=== PATIENT | female | born 1955 | race Caucasian/White ===

== ENCOUNTER → 2017-03-30 | Outpatient (REF) | payer MEDICARE, BC ==
[~2017-03-30] MED LIST: CALTCHW6 PO; CARB1TAB20 PO; CLAR10CA3 PO; EYE5SOL OU; FOLI1TAB4 PO; IBUP200C10 PO; LEVO150T7 PO; METH2.5TA PO; MULTCHW14 PO; NITRO10CA PO; TYLE325C PO; VITA500C24 PO; VITA600C4 PO
== END ==
LOC: M LAB REF 16:24
PROVIDERS: ATTEND Obstetrics & Gynecology
DX: N39.46 Mixed incontinence (principal); N32.81 Overactive bladder

== ENCOUNTER 2017-05-15 07:02 | Day surgery (SDC) | payer MEDICARE ==
[~2017-05-15] VITALS: Ht 160 cm; Wt 85.3 kg
[2017-05-15] MEDS ORDERED: LR 1,000 ML IV ONE (07:15)
[2017-05-15] MEDS ORDERED: LIDOCAINE 1% MDV 20ML VIAL SQ PRN (07:15)
[2017-05-15 07:36] LABS: MEAN CORPUSCULAR HEMOGLOBIN 30.1 pg (27.0-33.0); MEAN CORPUSCULAR HGB CONC 33.2 g/dl (32.0-36.5); MEAN CORPUSCULAR VOLUME 90.8 fl (80.0-96.0); PLATELET COUNT, AUTOMATED 261 10^3/uL (150-450); RED CELL DISTRIBUTION WIDTH 14.2 % (11.5-14.5); WHITE BLOOD COUNT 5.4 10^3/uL (4.0-10.0)
[2017-05-15] MEDS ORDERED: MIDAZOLAM INJ 2 MG/2 ML VIAL (J2250) As Ordered ONE (08:18)
[2017-05-15] MEDS ORDERED: fentaNYL 100 MCG/2 ML INJECTION (J3010) As Ordered ONE (08:18)
[2017-05-15] MEDS ORDERED: PROPOFOL 200 MG/20 ML VIAL As Ordered ONE (08:18)
[2017-05-15] MEDS ORDERED: LIDOCAINE 2% INJ 100 MG/5 ML SDV (FOR ANES.) As Ordered ONE (08:18)
--- NOTE | 2017-05-15 08:43 | ECGEPIP ---
Stationary ECG Study [facility] Test Date: 2017-05-15 Pat Name: ENEIDA MORRISON Department: Room: - Gender: F Mental Health Tech: [facility] : 1955 Requested By: Lucas Mello Order Number: [id number] Reading MD: Leandro Beltran Measurements Intervals [place] Rate: 92 P: 53 CT: 148 QRS: 32 QRSD: 97 T: 18 QT: 357 QTc: 443 Interpretive Statements Normal sinus rhythm Nonspecific diffuse ST scooping No prior tracing for comparison. Clinical correlation advised. Electronically Signed On 05-15-2017 8:43:12 EDT by Leandro Beltran
[2017-05-15] MEDS ORDERED: VASOPRESSIN INJ 20 UNITS/ML VIAL As Ordered ONE (09:51)
[2017-05-15] MEDS ORDERED: ONDANSETRON 4MG/2ML VIAL (J2405) As Ordered ONE (09:56)
[2017-05-15] MEDS ORDERED: dexameTHASONE 4 MG/ML 1ML VIAL (J1100) As Ordered ONE (09:56)
[2017-05-15] MEDS ORDERED: HYDROmorphone HCL 2 MG/ML 1ML VIAL (J1170) As Ordered ONE (10:27)
--- NOTE | 2017-05-15 12:14 | RO ---
DATE OF PROCEDURE: 05/15/2017 PREPROCEDURE DIAGNOSIS: Symptomatic pelvic relaxation. POSTPROCEDURE DIAGNOSIS: Symptomatic pelvic relaxation. PROCEDURE: Sacrospinous suspension with anterior and posterior colporrhaphy and perineorrhaphy. SURGEON: Dr. Katt Regalado. CLOCK REPAIRER: ANESTHESIA: Laryngeal mask airway. DESCRIPTION OF PROCEDURE: Lennie was brought to the operating room where sufficient anesthesia was induced and she was prepped, draped and positioned in the usual sterile fashion with the bladder emptied and the tissues visualized. Under anesthesia, again, she has a large cystocele, not as large rectocele. She has as posterior defect where the rectovaginal septum was not attached to the perineal body in the midline posteriorly but she did have some posterior support. So we went ahead and placed Allis clamps on the vaginal tissues and measured them to the sacrospinous ligament in preparation for the sacrospinous suspension. We then injected a little diluted vasopressin under the tissues. I went ahead and resected a triangle of tissue as already measured out and then dissected posteriorly. The patient also had an enterocele sac and so we entered this and closed this with a pursestring sutures of #2-0 Prolene. Then we continued the dissection towards the right sixth spinous ligament which was readily palpable in this patient and having dissected that adequately placed first a 0 PDS suture in one of the Anchorsure anchors and then we had two #2-0 PDS through the second one. We placed those as the 0 was a bit more medial and the two were a little bit lateral to that but of course, medial to the spine so as to avoid the vascular supply and such. We had good placement to test the suture and see that it was in good position and we had good anchoring into the ligament and there was no evidence of undue bleeding or other difficulty. We went ahead with Gamestaq needles and brought those sutures out through the edges of the vaginal wound working well away from the edge of the wound so as to be sure to not tear through. We had three instead of four, so in the midline we did a snehal stitch coming back through the tissues and sort of decreasing that gap. Then we brought those stitches down and secured them with multiple throws. We went ahead and did cystourethroscopy. We noted no evidence of injury to the bladder and she had normal jets of urine from the ureteral orifices. After that correction, we had good hemostasis at the vaginal incision where the tissue had been excised and we had good approximation to the sacrospinous ligament. But we did still have a small anterior defect and quite corrected all of the cystocele. Se we went ahead and did a cystocele repair anteriorly and then we had that defect posteriorly and a weakness in the perineal body. So we went ahead and took a triangle of tissue posteriorly and then dissected between the other vaginal epithelium posteriorly from the rectovaginal septum. We closed that midline defect and the rectovaginal septum and secured the rectovaginal septum to the perineal body and re-supported the perineal body at the perineorrhaphy and then we closed the skin using 0 Vicryl on the perineum and #2-0 on the rectovaginal septum and then #2-0 on the skin reapproximating that well also. Following this, she had good hemostasis, good approximation and good correction of her defect and good vaginal depth also on normal rectal exam. The procedure was then ended. ESTIMATED BLOOD LOSS: 25 mL FLUID REPLACEMENT: Crystalloid. COMPLICATIONS: None. CONDITION AND DISPOSITION: Lennie tolerated the procedure well and was recovering in the recovery room in good condition. JANNA
[2017-05-15] MEDS ORDERED: ONDANSETRON 4MG/2ML VIAL (J2405) IV PRN (12:15)
[2017-05-15] MEDS ORDERED: MEPERIDINE INJ 25 MG/ML VIAL (J2175) IV PRN (12:15)
[2017-05-15] MEDS ORDERED: NORCO, ANEXSIA 5/325MG TABLET (HYDROcodone/ACETAMINOPHEN) PO PRN (12:15)
[2017-05-15] MEDS ORDERED: fentaNYL 100 MCG/2 ML INJECTION (J3010) IV PRN (12:15)
[2017-05-15] MEDS ORDERED: IBUPROFEN 600 MG TAB PO PRN (12:15)
[2017-05-15] MEDS ORDERED: LR 1,000 ML IV SCH ×2 (12:15)
[2017-05-15 15:45] VITALS: BP 136/66
== END 2017-05-15 16:00 | disposition home or self-care (01) ==
LOC: M SDC 07:02
PROVIDERS: ATTEND Obstetrics & Gynecology
DX: N81.89 Other female genital prolapse (principal); E78.00 Pure hypercholesterolemia, unspecified; R23.3 Spontaneous ecchymoses; M12.9 Arthropathy, unspecified; M54.9 Dorsalgia, unspecified; R32 Unspecified urinary incontinence; E66.9 Obesity, unspecified; Z88.2 Allergy status to sulfonamides; Z88.8 Allergy status to other drugs, medicaments and biological substances; Z91.040 Latex allergy status; Z79.899 Other long term (current) drug therapy; Z90.710 Acquired absence of both cervix and uterus; Z78.0 Asymptomatic menopausal state
CPT/HCPCS: 36415; 57265; 57282; 85027; 86850; 86900; 86901; 88302; 93005; C1713; J0690; J1100; J1170; J2250; J2405; J3010

== ENCOUNTER → 2017-06-08 | Outpatient (REF) | payer MEDICARE | LOC: M LAB REF 16:01 | PROVIDERS: ATTEND Obstetrics & Gynecology | DX: N39.0 Urinary tract infection, site not specified (principal) ==

== ENCOUNTER → 2017-07-02 | Outpatient (REF) | payer MEDICARE | LOC: M LAB REF 16:17 | PROVIDERS: ATTEND Obstetrics & Gynecology | DX: R39.89 Other symptoms and signs involving the genitourinary system (principal) ==

== ENCOUNTER → 2018-10-14 | Outpatient (REF) | payer MEDICARE ==
[~2018-10-14] MED LIST changes: +FOLI1TAB11 PO; -FOLI1TAB4 PO; -IBUP200C10 PO; +IBUP200C25 PO; +METH2.5T48 PO; -METH2.5TA PO; +NITR-67 PO; -NITRO10CA PO
--- NOTE | 2018-10-14 15:26 | REP ---
OUTSIDE MAMMOGRAPHY INTERPRETATION: This patient was referred for needle biopsy of the left breast because of positive mammography. Mammography is reviewed from [facility] dated April 03, 2018, April 08, 2018, and October 07, 2018. In addition, this patient had prior [facility] bilateral mammographic study from March 04, 2008. FINDINGS: There has been some normal involutional change in the breast parenchymal opacity pattern since the 2008 prior mammography. However, the area of breast parenchyma identified on recent mammography in the left breast from March 2018 and September 2018 is felt to have been visible in retrospect in 2007. Overall, there is no evidence of progression. I do not feel there is a suspicious target to merit biopsy. IMPRESSION: BIRADS 3: BI-RADS/ACR category 3 mammogram. Probably Benign Findings. Stable mammographic findings in comparison with remote prior study from 2007. 6-month bilateral mammography recommended. BIRADS category 3, probably benign. Electronically Signed by Tim Hernandez MD 10/14/2018 04:09 P
== END ==
LOC: M RAD 14:23
PROVIDERS: ATTEND Obstetrics & Gynecology
DX: R92.8 Other abnormal and inconclusive findings on diagnostic imaging of breast (principal)

== ENCOUNTER → 2022-09-27 | Outpatient (CLI) | payer MEDICARE ==
[~2022-09-27] MED LIST changes: -EYE5SOL OU; +TETR15DR2 OU
== END ==
LOC: M WHC 10:47
PROVIDERS: ATTEND Advanced Practice Midwife
DX: Z12.31 Encounter for screening mammogram for malignant neoplasm of breast (principal)

== ENCOUNTER → 2023-12-12 | Outpatient (CLI) | payer MEDICARE | LOC: M WHC 09:01 | PROVIDERS: ATTEND Advanced Practice Midwife | DX: Z12.31 Encounter for screening mammogram for malignant neoplasm of breast (principal); R92.323 Mammographic fibroglandular density, bilateral breasts; R92.8 Other abnormal and inconclusive findings on diagnostic imaging of breast ==

== ENCOUNTER → 2024-01-02 | Outpatient (CLI) | payer MEDICARE | LOC: M WHC 08:59 | PROVIDERS: ATTEND Advanced Practice Midwife | DX: Z12.31 Encounter for screening mammogram for malignant neoplasm of breast (principal) | CPT/HCPCS: 76642; 77065; G0279 ==